=== PATIENT | male | born 1970 | race Caucasian/White ===

== ENCOUNTER → 2016-08-05 | Outpatient (CLI) | payer OTHER | LOC: MHCPAIN 11:27 | DX: G89.29 Other chronic pain (principal); M47.817 Spondylosis without myelopathy or radiculopathy, lumbosacral region; M54.16 Radiculopathy, lumbar region | CPT/HCPCS: G0463 ==

== ENCOUNTER → 2016-08-13 | Outpatient (CLI) | payer OTHER | LOC: MHCPAIN 07:44 | DX: M47.817 Spondylosis without myelopathy or radiculopathy, lumbosacral region (principal) | CPT/HCPCS: J1100; Q9967 ==

== ENCOUNTER → 2016-09-11 | Outpatient (CLI) | payer OTHER | LOC: MHCPAIN 12:02 | DX: G89.29 Other chronic pain (principal); M47.817 Spondylosis without myelopathy or radiculopathy, lumbosacral region; M54.16 Radiculopathy, lumbar region; M53.3 Sacrococcygeal disorders, not elsewhere classified | CPT/HCPCS: G0463 ==

== ENCOUNTER → 2016-09-17 | Outpatient (CLI) | payer OTHER | LOC: MHCPAIN 12:10 | DX: M47.817 Spondylosis without myelopathy or radiculopathy, lumbosacral region (principal) | CPT/HCPCS: J1100; Q9967 ==

== ENCOUNTER → 2016-11-30 | Outpatient (CLI) | payer OTHER | LOC: MHCPAIN 12:38 | DX: G89.29 Other chronic pain (principal); M47.27 Other spondylosis with radiculopathy, lumbosacral region; M53.3 Sacrococcygeal disorders, not elsewhere classified | CPT/HCPCS: G0463 ==

== ENCOUNTER 2017-05-25 10:30 | Outpatient (RCR) | payer OTHER | END 2017-05-30 | LOC: WSPT | DX: M54.5 Low back pain (principal) ==

== ENCOUNTER 2017-06-03 11:15 | Outpatient (RCR) | payer OTHER | END 2017-06-15 08:06 | disposition home or self-care (01) | LOC: WSPT 11:15 | DX: M54.5 Low back pain (principal); E66.9 Obesity, unspecified ==

== ENCOUNTER 2019-01-22 10:45 | Emergency (ER) | payer OTHER ==
[~2019-01-22] VITALS: Ht 180.3 cm; Wt 106.8 kg
[2019-01-22 10:56] VITALS: BP 136/81; TEMP 97.6
[2019-01-22] MEDS ORDERED: BACTRIM DS 8001 TAB PO (11:19)
[2019-01-22 11:29] VITALS: PULSE 75
== END 2019-01-22 11:30 | disposition home or self-care (01) ==
LOC: COL.ER 10:45
DX: S00.262A Insect bite (nonvenomous) of left eyelid and periocular area, initial encounter (principal); H02.846 Edema of left eye, unspecified eyelid; W57.XXXA Bitten or stung by nonvenomous insect and other nonvenomous arthropods, initial encounter